=== PATIENT | male | born 1965 | race Caucasian/White ===

== ENCOUNTER 2019-03-02 04:10 | Emergency (ER) | payer BC ==
[2019-03-02 04:23] VITALS: BMI 28.9
[2019-03-02] MEDS ORDERED: COLCHICINE 0.6 MG TABLET (FP) PO ONE ×2 (04:37→05:58)
[2019-03-02] MEDS ORDERED: NAPROXEN 500 MG TABLET (FP) PO ONE (04:37)
--- NOTE | 2019-03-02 04:38 | PDOC ---
History of Present Illness - General Chief Complaint: Pain, Acute Stated Complaint: L KNEE PAIN Time Seen by Provider: 03/02/19 04:18 History Source: Patient Exam Limitations: No Limitations - History of Present Illness Initial Comments: 03/02/19 04:46 HISTORY OF PRESENT ILLNESS: 53-year-old male past medical history of gout who presents emergency department for evaluation of atraumatic left knee pain and chest pain which started 3 days ago. Patient denies any trauma. Patient reports is from the pain starting his chest was he reports 9/10 worsens with deep inspiration and movement of the left shoulder. Denies any fevers, chills, coughing. No recent travel or sick contacts. PAST MEDICAL HISTORY: gout SURGICAL HISTORY: Denies ALLERGIES: No known drug allergies REVIEW OF SYSTEMS General/Constitutional: Denies fever or chills. Denies weakness, weight change. HEENT: Denies change in vision. Denies ear pain or discharge. Denies sore throat. Cardiovascular: see HPI Respiratory: Denies cough, wheezing, or hemoptysis. Gastrointestinal: Denies nausea, vomiting, diarrhea or constipation. Denies rectal bleeding. Genitourinary: Denies dysuria, frequency, or change in urination. Musculoskeletal: see HPI Skin and breasts: Denies rash or easy bruising. Neurologic: Denies headache, vertigo, loss of consciousness, or loss of sensation. Psychiatric: Denies depression or anxiety. Endocrine: Denies increased thirst. Denies abnormal weight change. Hematologic/Lymphatic: Denies anemia, easy bleeding, or history of blood clots. Allergic/Immunologic: Denies hives or skin allergy. Denies latex allergy. PHYSICAL EXAM General Appearance: Well-appearing, appropriately dressed. No apparent distress , no intoxication. HEENT: EOMI, PERRLA, normal ENT inspection, normal voice, TMs normal, pharynx normal. No conjunctival pallor. No photophobia, scleral icterus. Neck: Supple. Trachea midline. No tenderness, rigidity, carotid bruit, stridor , lymphadenopathy, or thyromegaly. Respiratory/Chest: Lungs CTAB. No shortness of breath, respiratory distress, accessory muscle use. No crackles, rales, rhonchi, stridor, wheezing, dullness. Left anterior chest tender over the pectoral muscle between the fifth and sixth intercostal spaces. Cardiovascular: RRR. S1, S2. No JVD, murmur, bradycardia, tachycardia. Vascular Pulses: Dorsalis-Pedis (R): 2+, Dorsalis-Pedis (L): 2+ Gastrointestinal/Abdominal: Normal bowel sounds. Abdomen soft, non-distended. No tenderness or rebound tenderness. No organomegaly, pulsatile mass, guarding, hernia, hepatomegaly, splenomegaly. Lymphatic: No adenopathy, tenderness. Musculoskeletal/Extremities: Left knee erythematous over the anterior surfaces.FAROM. Tender to palpation over anterior surfaces of the knee immediately inferior to the patella. Patella is mobile. Integumentary: Appropriate color, dry, warm. No cyanosis, erythema, jaundice or rash Neurologic: adolescent counselor II-XII intact. Fully oriented, alert. Appropriate mood/affect. Motor strength 5/5. No appreciable EOM palsy, facial droop or sensory deficit. Past History - Past Medical History Allergies/Adverse Reactions: Allergies Allergy/AdvReac Type Severity Reaction Status Date / Time No Known Allergies Allergy Verified 03/02/19 04:23 Home Medications: Ambulatory Orders Colchicine 0.6 mg PO BID #30 tablet 03/02/19 Naproxen 500 mg PO BID #20 tablet. 03/02/19 COPD: No Other medical history: GOUT - Suicide/Smoking/Psychosocial Hx Smoking History: Unknown if ever smoked *Physical Exam - Vital Signs Last Vital Signs Temp Pulse Resp BP Pulse Ox 98.2 F 90 18 146/91 100 03/02/19 04:15 03/02/19 04:15 03/02/19 04:15 03/02/19 04:15 03/02/19 04:15 Heart Score/ECG Review - History History: Slightly suspicious - Electrocardiogram EKG: Normal - Age Age: 45-65 - Risk Factors Based on the list above the patient has:: No risk factors known - Troponin Troponin: </= normal limit - Score Heart Score - Total: 1 - ECG Intrepretation Rhythm: Regular Rhythm - [place]: Normal - ECG Impressions Normal ECG: Yes ED Treatment Course - LABORATORY CBC & Chemistry Diagram: 03/02/19 04:52 03/02/19 04:52 - RADIOLOGY Radiology Studies Ordered: Category Date Time Status CHEST PA & LAT [RAD] Stat Radiology 03/02/19 04:34 Ordered KNEE 2 POS-LEFT [RAD] Stat Radiology 03/02/19 04:35 Ordered Medical Decision Making - Medical Decision Making 03/02/19 04:50 A/P: 53-year-old male with left-sided chest pain and atraumatic left knee pain Anterior chest wall tender to palpation RRR. S1 and S2. No murmur, rub or gallop noted. Lungs clear to auscultation bilaterally Left knees erythematous and tender to palpation along the anterior surfaces immediately inferior to left patella. Differential diagnosis includes but is not limited to-pneumonia, ACS, arrhythmia , musculoskeletal pain, GERD, pulmonary infarct, gout, osteoarthritis, fracture , sprain Chest pain is most likely musculoskeletal given pain worsens with articulation of the left shoulder as well as tenderness to palpation at the anterior chest. Left knee is most likely gout is pain is atraumatic there is erythema and tenderness present. Laboratory testing including cardiac profile and uric acid EKG Chest x-ray X-ray of the left knee Colchicine 0.6 mg orally now Naprosyn 500 mg orally now Reassess 03/02/19 05:40 Chest x-rays read by me: Angles clear. Cardiac silhouette is within normal limits. No focal infiltrates or consolidations present. X-ray of the left knee as read by me: No acute fractures or dislocations present. Initial troponin is negative. EKG as reviewed by me and interpreted by Dr. Dowling: Sinus rhythm with rate of 79. Normal intervals present. Normal axis noted. No ST depressions, ST elevations or T-wave inversions are present. WBC is 11.7. Chemistries are unremarkable. Chest pain is likely musculoskeletal in nature. Uric acid level 7.0. This patient is a male, has previous gout attacks, joint redness with elevated serum uric acid this is highly likely this is a gout flare in his knee. *DC/Admit/Observation/Transfer Diagnosis at time of Disposition: Costochondral chest pain Gout attack Qualifiers: Gout site: knee Gout etiology: unspecified cause Laterality: left Qualified Code(s): M10.9 - Gout, unspecified - Discharge Dispostion Condition at time of disposition: Fair Decision to Admit order: No - Prescriptions Prescriptions: Colchicine 0.6 mg PO BID #30 tablet Naproxen 500 mg PO BID #20 tablet.dr - Referrals Referrals: Kashif Downing MD [Staff Physician] - - Patient Instructions Printed Discharge Instructions: DI for Gout Additional Instructions: Take also seen 0.6 mg twice a day until he her pain has resolved. Take Naprosyn 500 mg twice a day until her pain has resolved. Make an appointment with your primary doctor at [facility] for reevaluation within the next 3 or 4 days especially if pain has not improved. You have been given the number for orthopedist they continue to experience pain isn't call for an evaluation. Return to the emergency department for any new or worsening symptoms. Thank you very much for choosing us to provide your emergent health care needs. - Post Discharge Activity Forms/Work/School Notes: Back to Work
[2019-03-02] MEDS ORDERED: NAPROXEN 500 MG TABLET (FP) ONE (04:56)
[2019-03-02] MEDS ORDERED: COLCHICINE 0.6 MG TABLET (FP) ONE ×3 (04:56→06:07)
[2019-03-02 05:02] LABS: BASO % 0.6 % (0-2.0); EOS % 0.4 % (0-4.5); HEMOGLOBIN 14.1 GM/dL (11.7-16.9); MCHC 33.5 g/dl (32.0-35.9); MEAN CELL VOLUME 95.4 fl (80-96); MEAN PLT VOLUME 8.9 fl (7.5-11.1); MONO % 9.3 % (3.8-10.2); NEUT % 66.7 % (42.8-82.8); PLATELET COUNT 240 K/MM3 (134-434); RBC 4.41 M/mm3 (4.00-5.60); RDW 14.8 % (11.9-15.9); WHITE BLOOD COUNT 11.3 K/mm3 (4.0-10.0)
[2019-03-02] MEDS ORDERED: DEXTROSE 50%-WATER - 25 GM/50 ML VIAL IVPUSH ONE (05:08)
[2019-03-02 05:12] LABS: INR 1.05 (0.83-1.09); PROTHROMBIN TIME (PATIENT) 12.4 SEC (9.7-13.0)
[2019-03-02] MEDS ORDERED: DEXTROSE 50%-WATER 25 GM/50 ML DISP.SYRIN ONE (05:26)
[2019-03-02 05:27] LABS: ALBUMIN 3.3 g/dl (3.4-5.0); ALK PHOS 62 U/L (45-117); ANION GAP 8 MMOL/L (8-16); BILIRUBIN,TOTAL 0.4 mg/dL (0.2-1); BLOOD UREA NITROGEN 20 mg/dL (7-18); CALCIUM 9.1 mg/dL (8.5-10.1); CHLORIDE 102 mmol/L (98-107); CO2 29 mmol/L (21-32); GLUCOSE,RANDOM 109 mg/dL (74-106); MAGNESIUM 2.3 mg/dL (1.8-2.4); POTASSIUM 4.7 mmol/L (3.5-5.1); SGOT/AST 30 U/L (15-37); SGPT/ALT 52 U/L (13-61); SODIUM 139 mmol/L (136-145); TOT PROT 7.2 g/dl (6.4-8.2)
[2019-03-02 06:13] VITALS: BP 140/88; PULSE 88; TEMP 98.4
--- NOTE | 2019-03-02 12:56 | EKG ---
Test Reason : Blood Pressure : / mmHG Vent. Rate : 079 BPM Atrial Rate : 079 BPM P-R Int : 126 ms QRS Dur : 098 ms QT Int : 342 ms P-R-T Axes : 059 037 041 degrees QTc Int : 392 ms NORMAL SINUS RHYTHM NORMAL ECG Confirmed by MD YU, GENESIS ([id number]) on 03/02/2019 12:56:28 PM Referred By: Confirmed By:GENESIS NICHOLAS MD
== END 2019-03-02 06:25 | disposition home or self-care (01) ==
LOC: JER 04:10
DX: M94.0 Chondrocostal junction syndrome [Tietze] (principal); M10.9 Gout, unspecified
CPT/HCPCS: 36415; 71046-TC-FY; 73560-TC-LT-FY; 80053; 82550; 83735; 84484; 84550; 85025; 85610; 93005; 93010; 99282-25